=== PATIENT | female | born 1950 | race Two or more races ===

== ENCOUNTER 2022-07-28 16:50 | Inpatient (IN) | payer SELFPAY ==
[~2022-07-28] VITALS: Ht 165.1 cm; Wt 76.4 kg
[2022-07-28 18:25] LABS: Basophils # (auto) 0.1 10 ^3/uL (0-0.2); Basophils % (auto) 1.2 % (0.0-2.0); Eosinophils # (auto) 0.1 10 ^3/uL (0-0.8); Eosinophils % (auto) 2.1 % (0.0-7.0); Hemoglobin 14.1 g/dL (12.2-16.2); Lymphocytes # (auto) 1.6 10 ^3/uL (0.4-5.4); Lymphocytes % (auto) 25.2 % (10.0-50.0); Mean Corpuscular Hemoglobin 30.1 pg (28.0-32.0); Mean Corpuscular Hgb Conc. 33.6 g/dL (32.0-36.0); Mean Corpuscular Volume 89.5 fL (80.0-100.0); Monocytes # (auto) 0.7 10 ^3/uL (0-1.3); Monocytes % (auto) 11.3 % (0.0-12.0); Neutrophils # (auto) 3.7 10 ^3/uL (1.6-8.6); Neutrophils % (auto) 60.2 % (37.0-80.0); Nucleated Red Blood Cells % 0.1 %; Red Cell Distribution Width 13.4 % (11.8-14.3); White Blood Cell 6.2 10^3/uL (4.4-10.8)
[2022-07-28 18:43] LABS: Albumin 3.6 g/dL (3.4-5.0); Calcium 8.4 mg/dL (8.5-10.1)
[2022-07-28 18:48] LABS: BUN/Creatinine Ratio 12.1; Bilirubin, Total 0.3 mg/dL (0.2-1.0); Total Protein 7.2 g/dL (6.4-8.2)
[2022-07-28] MEDS ORDERED: LABETALOL HCL 5 MG/ML 4ML SYRINGE IV ONE (19:15)
[2022-07-28] MEDS ORDERED: ASPirin 325 MG TAB PO ONE (19:15)
[2022-07-28] MEDS ORDERED: NITROGLYCERIN 0.4 MG SL TAB SL ONE ×2 (19:15→21:30)
[2022-07-28 19:18] LABS: Urine Bacteria NONE SEEN /hpf (None Seen); Urine Blood Negative /uL (Negative); Urine WBC 1 /hpf (0 - 5)
[2022-07-28] MEDS ORDERED: ONDANSETRON HCL 4 MG/2 ML VIAL IV PRN (23:30)
[2022-07-28] MEDS: MAALOX PLUS or MAALOX 30 ML PO ONE ×2 (23:30→23:41)
[2022-07-28] MEDS ORDERED: SODIUM CHLORIDE 0.9% 1,000 ML IV SCH (23:30)
[2022-07-28] MEDS ORDERED: MORPHINE SULFATE 4 MG/ML SYR/VIAL IV PRN (23:30)
[2022-07-28] MEDS ORDERED: ZOLPIDEM TARTRATE 5 MG TAB PO PRN (23:30)
[2022-07-28] MEDS ORDERED: hydrALAZINE HCL 10 MG TAB PO PRN (23:30)
[2022-07-28] MEDS ORDERED: ACETAMINOPHEN 325 MG TAB PO PRN (23:30)
[2022-07-28] MEDS ORDERED: NITROGLYCERIN 0.4 MG SL TAB SL PRN (23:30)
[2022-07-29] MEDS ORDERED: LABETALOL HCL 200 MG TAB PO SCH (06:00)
[2022-07-29 08:02] LABS: Basophils # (auto) 0.1 10 ^3/uL (0-0.2); Basophils % (auto) 0.7 % (0.0-2.0); Eosinophils # (auto) 0.2 10 ^3/uL (0-0.8); Eosinophils % (auto) 1.9 % (0.0-7.0); Hematocrit 37.5 % (36.0-46.0); Lymphocytes # (auto) 1.7 10 ^3/uL (0.4-5.4); Lymphocytes % (auto) 21.1 % (10.0-50.0); Mean Corpuscular Hemoglobin 30.8 pg (28.0-32.0); Mean Corpuscular Hgb Conc. 34.8 g/dL (32.0-36.0); Mean Corpuscular Volume 88.5 fL (80.0-100.0); Monocytes # (auto) 0.9 10 ^3/uL (0-1.3); Monocytes % (auto) 10.6 % (0.0-12.0); Neutrophils # (auto) 5.3 10 ^3/uL (1.6-8.6); Neutrophils % (auto) 65.7 % (37.0-80.0); Red Blood Cells 4.23 10^6/uL (4.0-5.20); Red Cell Distribution Width 13.2 % (11.8-14.3); White Blood Cell 8.1 10^3/uL (4.4-10.8)
[2022-07-29 08:20] LABS: Calcium 8.2 mg/dL (8.5-10.1); Potassium 3.5 mmol/L (3.5-5.1)
[2022-07-29 08:23] LABS: BUN/Creatinine Ratio 18.8
[2022-07-29] MEDS ORDERED: DOCUSATE SOD 100 MG CAP PO SCH (10:00)
[2022-07-29] MEDS ORDERED: ASPirin 81 mg TAB PO SCH (10:00)
[2022-07-29] MEDS ORDERED: METOPROLOL TARTRATE 25 MG TAB PO SCH (10:00)
[2022-07-29] MEDS ORDERED: ENOXAPARIN SOD 80 MG/0.8ML SYRINGE SC SCH (10:00)
[2022-07-29] MEDS ORDERED: LISINOPRIL 5 MG TAB PO SCH (10:00)
[2022-07-29] MEDS ORDERED: CLOPIDOGREL BISULFATE 75 MG TAB PO SCH (10:00)
[2022-07-29] MEDS ORDERED: NIFE1TAB31 PO (13:54)
[2022-07-29 14:00] VITALS: BP 107/53
[2022-07-29] MEDS ORDERED: ATORVASTATIN 20 MG TAB PO SCH (22:00)
== END 2022-07-29 14:32 | disposition home or self-care (01) | DRG 305 ==
LOC: ER 16:50 → TELE 23:30
PROVIDERS: ADMIT Hospitalist; ATTEND Internal Medicine
DX: I16.0 Hypertensive urgency (principal); Z20.822 Contact with and (suspected) exposure to COVID-19; E11.9 Type 2 diabetes mellitus without complications; I10 Essential (primary) hypertension; M54.12 Radiculopathy, cervical region
CPT/HCPCS: 36415; 70450; 71045; 80048; 80053; 81001; 84484; 85025; 87426; 93005; 96360; 96372; 99291; G0378; J3490